=== PATIENT | male | born 1965 ===

== ENCOUNTER 2021-06-02 06:48 | Day surgery (SDC) | payer OTHER ==
[~2021-06-02 06:48] MED LIST: METFORMIN HCL1000 M2
== END 2021-06-02 17:35 | disposition home or self-care (01) ==
LOC: CIR.AMB 06:48
PROVIDERS: ATTEND Colon & Rectal Surgery
DX: K60.5 Anorectal fistula (principal); Z20.822 Contact with and (suspected) exposure to COVID-19